=== PATIENT | female | born 1970 | race Caucasian/White ===

== ENCOUNTER 2017-09-21 15:05 | Outpatient (CLI) | payer OTHER ==
[~2017-09-21] VITALS: Ht 172.7 cm; Wt 67.3 kg
[2017-09-21 15:25] VITALS: Ht 172.7 cm; Wt 67.3 kg
[2017-09-21] MEDS ORDERED: FERR220S13 PO (15:25)
[2017-09-21] MEDS ORDERED: MILK500C PO (15:25)
[2017-09-21 15:26] VITALS: BP 107/58; PULSE 55; RESP 16
--- NOTE | 2017-09-21 18:55 | CONS ---
DATE OF CONSULTATION: 09/21/2017 [facility] INITIAL OUTPATIENT CONSULTATION NOTE PLACE OF SERVICE: [facility]. REFERRING PHYSICIAN: Bebeto Nolen MD Dear Dr. Nolen, Thank you very much for the opportunity to participate in the care of this very pleasant lady and her wonderful family. REASON FOR CONSULTATION: Hepatic hemangiomas. HISTORY OF PRESENT ILLNESS: The patient is a very pleasant 47-year-old lady with a few comorbidities and incidentally discovered hemangiomas in her liver which were a result of a workup that was done for a minor accident in the last number of months. She has had a few images including CT scans and MRIs of the abdomen, the latest of which was an ultrasound of the abdomen on 03/11/2017 done at [facility], read by Dr. Spencer Laboy that showed 2 right hepatic lobe masses, 1 hypoechoic and the other hyperechoic and somewhat ill- defined. A 2 cm left renal parapelvic cyst was also noted. The MRI of the lumbar spine that discovered the lesions was done on 11/27/2015. CT scan of abdomen and pelvis with and without contrast was done on 12/17/2015 at [facility] that showed 2 low-attenuation lesions in the right lobe of the liver located in segment 5 measuring 4 x 5.3 x 3.3 cm and located in segment 7 measuring 2.8 x 4.1 x 3.6 cm, demonstrating diffuse low-attenuation on noncontrast imaging with peripheral nodular areas of enhancement on arterial phase contrast and centripetal filling in with contrast on venous and delayed phase contrast characteristic of cavernous hemangiomas. No other lesions were seen in the liver and the overall impression of the study was compatible with hemangiomas. Again, a left renal cyst was found and an upper limit of normal size spleen was noted. The patient was kindly referred to me since there was mention of possible growth in 1 of these lesions and mainly for reassurance. The patient was accompanied to the office along with her mother. No other major symptoms that seem to be related to the liver. The patient mentioned having a bruised area on the left abdominal and chest wall in the past and some issues with perhaps indigestion or constipation, but no difficulty with appetite. No issues with weight loss, and, in fact, she had gained some weight. No shortness of breath or chest pain or other major symptoms. No prior history of liver disease or hepatitis in the past. No major hormone use or other liver related history. COMORBIDITIES: 1. Above-mentioned hepatic hemangiomas known since early 2017. 2. Left renal cyst. 3. BRCA positive with mother with ovarian cancer, status post bilateral salpingo-oophorectomy and hysterectomy at [facility]. 4. History of other malignancies in the family (no malignancy in the patient). 5. BRCA testing demonstrated BRCA2 specific site mutation detected. Note that the patient is under the care of a physician for this specific issue. ALLERGIES: NO KNOWN DRUG ALLERGIES. MEDICATIONS: Carefully recorded and reviewed in the electronic health record system. SOCIAL HISTORY: The patient is single, never and does not have children. She had 2 prior pregnancies that were aborted. 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 Does not report smoking or drug abuse. Occasionally has an alcoholic beverage. FAMILY HISTORY: There is history of osteoporosis in the mother and grandmother. Mother had stage III ovarian cancer as above. She is of Ashkenazi heritage. BRCA2 positive as mentioned above. No other mention of major medical, surgical or oncologic problems in the family. REVIEW OF SYSTEMS: Other than the above-mentioned, there are no other pertinent positives or pertinent negatives in a complete 14-point review of systems. PHYSICAL EXAMINATION: GENERAL: The patient appears to be a very pleasant lady of non- descent, appearing stated age, sitting in a chair comfortably and in no acute distress. Her BMI is 22.5. VITAL SIGNS: Normal with slightly low pulse of 55 and low blood pressure 107/ 58. HEENT: Head is normocephalic and atraumatic. Her extraocular muscles and hearing are grossly intact bilaterally and symmetrically. Her sclerae are nonicteric. Her oral cavity is clear and her oral mucosa appears to be pink and moist. She has relatively good dentition. NECK: Supple. There is no lymphadenopathy or JVD. There is no submental, submandibular, or supraclavicular lymphadenopathy. CHEST: Rises symmetrically with each breath, and she is breathing comfortably. There are no audible wheezes, rales, or rhonchi on the gross exam. Her pulses are palpable bilaterally and symmetrically in her neck. HEART: Radial pulses palpable on the right wrist. EXTREMITIES: Lower extremities contain no pitting edema around the ankles bilaterally and symmetrically. ABDOMEN: Soft, nontender and nondistended. There is no evidence of organomegaly, caput medusae, engorged subcutaneous veins, or ascites. There are no peritoneal signs or guarding. SKIN: Appears to be pink and feels warm to touch. NEUROLOGIC: She is awake, alert, and follows commands appropriately. LABORATORY DATA: Dated 04/19/2016: Hepatitis B surface antigen negative, hepatitis C antibody negative. CEA 0.7, CA 19-9 is 27. Alpha fetoprotein 2.0. IMAGING: Pertinent images were reviewed above. Note that I personally reviewed all the available images and I agree in general with their overall reported findings. ASSESSMENT AND PLAN: A very pleasant and otherwise fairly healthy 47-year-old lady with 2 benign-appearing hepatic hemangiomas in the right lobe of the liver that do not pose any major threat to the patient and do not require any further testing unless she becomes symptomatic from them. There is no indication of any biopsy or other interventions for these lesions. I did my best to reassure the patient and the family and my impression was that the patient was reassured. Of more importance is the BRCA2 positive history and the need for the patient and family to remain within the care of a capable genetic counselor as well as a physician team which the patient seems to be in her possession already. I answered all of the patient's and family's questions to the best of my ability and I believe that they understood and agreed with the plan. With above assessments, I have recommended the followin. Symptomatic followup of the liver lesions with no further need for imaging or interventions at this time. 2. Continue close surveillance and follow up with genetic counselor both for the patient as well as from family for BRCA2 positive mutation status. 3. Follow up with primary care physician. 4. Follow up with us as needed. Thank you again for allowing us to participate in the care of this very pleasant lady and her wonderful family. If there are any questions, please feel free to contact me at [phone]. NATURE OF PRESENTING PROBLEM: Low risk. COMPLEXITY OF DECISION MAKING: Low complexity. Dictated By: LOURDES LIANG/KARY Conf#: [id number] DID#: [id number] CC: Annabelle Miles; BEBETO NOLEN MD;*End* MTDD
== END 2017-09-21 15:28 | disposition home or self-care (01) ==
LOC: HPC 15:05
PROVIDERS: ATTEND Transplant Surgery
DX: D18.09 Hemangioma of other sites (principal)
CPT/HCPCS: G0463